=== PATIENT | female | born 1980 | race Caucasian/White ===

== ENCOUNTER 2018-10-03 15:55 | Emergency (ER) | payer BC ==
[~2018-10-03] VITALS: Ht 154.9 cm; Wt 74.8 kg
[2018-10-03 15:55] VITALS: BP_SYST 135
--- NOTE | 2018-10-03 15:55 | NUR ---
BROUGHT IN BY [facility], PLACED IN HALLWAY BED AND TRIAGED. REPORT GIVEN TO SHILPA
--- NOTE | 2018-10-03 16:00 | NUR ---
Pt brought by ambulance , A&Ox4, pt presents to ER with R lower abdominal pain sudden onset, skin pink and warm, ambulatory, respirations even and unlabored
[2018-10-03] MEDS ORDERED: NACL 0.9% 1,000 ML IV ONE (16:23)
[2018-10-03] MEDS ORDERED: ONDANSETRON HCL 4 MG/2 ML VIAL IVP ONE (16:30)
[2018-10-03] MEDS ORDERED: MORPHINE 4 MG/ML INJ. SYRINGE IVP ONE (16:30)
--- NOTE | 2018-10-03 16:35 | NUR ---
Pt moved to bed 06
[2018-10-03 16:53] LABS: BILIRUBIN,URINE NEGATIVE (NEGATIVE); CLARITY/URINE CLEAR (CLEAR); COLOR,URINE YELLOW (YELLOW); GLUCOSE,URINE NEGATIVE (NEGATIVE); KETONES,URINE TRACE (NEGATIVE); LEUKOCYTE ESTERASE ,URINE NEGATIVE (NEGATIVE); NITRITE, URINE NEGATIVE (NEGATIVE); PROTEIN URINE NEGATIVE (NEGATIVE); UROBILINOGEN,URINE 0.2 (0.2-1.0)
[2018-10-03 16:56] LABS: BLOOD, URINE TRACE (NEGATIVE)
--- NOTE | 2018-10-03 17:00 | NUR ---
Dr Mueller at bedside examining patient
[2018-10-03 17:02] LABS: BACTERIA,URINE FEW /HPF (None Seen); MUCUS,URINE None Seen /LPF (None Seen); RBC,URINE NONE SEEN /HPF (0-3); WBC,URINE 0-3 /HPF (0-3)
[2018-10-03 17:14] LABS: BASOPHILS % (AUTO) 0.6 % (0.0-2.0); EOSINOPHILS # (AUTO) 0.1 K/uL (0.0-0.4); EOSINOPHILS % (AUTO) 1.5 % (0.0-4.0); HEMATOCRIT 36.6 % (36-48); HEMOGLOBIN 12.7 g/dL (12.0-16.0); LYMPHOCYTES # (AUTO) 1.3 K/uL (1.0-5.5); MEAN CORPUSCULAR HEMOGLOBIN 31 pg (27-31); MEAN CORPUSCULAR HGB CONC 35 % (32-36); MEAN CORPUSCULAR VOLUME 89 fL (79.0-98.0); MONOCYTES # (AUTO) 0.4 K/uL (0.0-1.0); MONOCYTES % (AUTO) 6.4 % (1.7-9.3); NEUTROPHILS % (AUTO) 72.5 % (40.0-70.0); PLATELET COUNT (AUTO) 302 K/uL (130-430); RED BLOOD CELL COUNT(AUTO) 4.13 MIL/uL (4.2-6.2); RED CELL DISTRIBUTION WIDTH 12.9 % (9.0-15.0); WHITE BLOOD COUNT (AUTO) 6.9 K/uL (4.8-10.8)
[2018-10-03 17:22] LABS: CALCIUM 8.9 mg/dL (8.4-11.0); CREATININE 0.65 mg/dL (0.55-1.30); POTASSIUM 3.2 mmol/L (3.5-5.1)
[2018-10-03 17:26] LABS: PROTHROMBIN TIME 9.9 SECS (9.5-12.5)
[2018-10-03 17:27] LABS: ALBUMIN 3.9 g/dL (3.4-4.8); TOTAL BILIRUBIN 0.4 mg/dL (0.0-1.0)
[2018-10-03 18:24] VITALS: BP_SYST 128
--- NOTE | 2018-10-03 18:24 | NUR ---
Patient given written and verbal discharge instructions and verbalizes understanding. ER MD discussed with patient the results and treatment provided. Patient in stable condition. ID arm band removed. IV catheter removed intact and dressing applied, no active bleeding. Rx of zofran, tylenol with codeine given. Patient educated on pain management and to follow up with PMD. Pain Scale 0/10. Opportunity for questions provided and answered. Medication side effect fact sheet provided.
== END 2018-10-03 18:24 | disposition home or self-care (01) ==
LOC: SED 15:55
DX: K56.7 Ileus, unspecified (principal); R10.31 Right lower quadrant pain
CPT/HCPCS: 36415; 71045; 74176; 80053; 81000; 82550; 83690; 85025; 85610; 85730; 96374; 96375; 99284; J2270; J2405; J7030